=== PATIENT | female | born 1985 ===

== ENCOUNTER 2019-01-01 16:49 | Emergency (ER) | payer OTHER, MEDICAID ==
--- NOTE | 2019-01-01 17:15 | EDM.PDOC ---
ED HPI GENERAL MEDICAL PROBLEM - General Stated Complaint: POSSIBLE STREP Time Seen by Provider: 01/01/19 17:05 Source of Information: Reports: Patient History Limitations: Reports: No Limitations - History of Present Illness INITIAL COMMENTS - FREE TEXT/NARRATIVE: This is a 33yo F who works at [employer] here for a sore throat, cough for the past 3 weeks without improvement. Patient has been exposed to strep throat multiple times. Onset: Gradual Duration: Week(s): Quality: Reports: Ache Severity: Mild Improves with: Reports: None Worsens with: Reports: None ED ROS ENT - Review of Systems Review Of Systems: ROS reveals no pertinent complaints other than HPI. ED EXAM, ENT - Physical Exam Exam: See Below Exam Limited By: No Limitations General Appearance: Alert, WD/WN, No Apparent Distress Ears: Normal External Exam Nose: Normal Inspection Mouth/Throat: Pharyngeal Erythema, Throat Pain Head: Atraumatic, Normocephalic Neck: Normal Inspection Respiratory/Chest: No Respiratory Distress, No Accessory Muscle Use Cardiovascular: Normal Peripheral Pulses Course - Vital Signs Last Recorded V/S: Last Vital Signs Temp 36.7 C 01/01/19 17:00 Pulse 66 01/01/19 17:00 Resp 16 01/01/19 17:00 BP 142/73 H 01/01/19 17:00 Pulse Ox 99 01/01/19 17:00 Departure - Departure Time of Disposition: 17:14 Disposition: Home, Self-Care 01 Condition: Good Clinical Impression: Pharyngitis Qualifiers: Pharyngitis/tonsillitis etiology: unspecified etiology Qualified Code(s): J02.9 - Acute pharyngitis, unspecified - Discharge Information Instructions: Pharyngitis, [id number] Referrals: PCP,None [Primary Care Provider] - Care Plan Goals: Take medications as prescribed. Return to hospital or clinic with any questions or concerns. - Problem List & Annotations (1) Pharyngitis SNOMED Code(s): 030740613 Code(s): J02.9 - ACUTE PHARYNGITIS, UNSPECIFIED Status: Acute Current Visit: Yes Qualifiers: Pharyngitis/tonsillitis etiology: unspecified etiology Qualified Code(s): J02.9 - Acute pharyngitis, unspecified - Problem List Review Problem List Initiated/Reviewed/Updated: Yes - Assessment/Plan Plan: Counseled on pharyngitis and exposure to strep. Discussed antibiotics use and side effects and f/u if symptoms persist or worsen. F/u as directed.
== END 2019-01-01 17:16 | disposition home or self-care (01) ==
LOC: LB.ED 16:49
DX: J02.9 Acute pharyngitis, unspecified (principal)
CPT/HCPCS: 99282